=== PATIENT | female | born 1985 | race Caucasian/White ===

== ENCOUNTER → 2022-11-14 | Outpatient (CLI) | payer OTHER ==
[~2022-11-14] MED LIST: IBU600 MG PO
--- NOTE | 2022-11-14 15:46 | NUR ---
Pt, Jasmina Trinh, presents to walk in clinic with 7 week old baby girl, Denise Callejas, for a weight check. She states Denise was fed not long ago so did not think she would breastfeed at this time. Denise was born on [birth year] and weighed 6# 15oz. Last week Denise weighed 8# 15.2oz (4060 gms). Today Denise weighs 9# 12.5oz. Pt states Denise now drinks upto 150ml per bottle feeding, and about 60 after . Pt anticipates coming to clinic again to do a pre and post weight feed.
== END ==
LOC: LAC 14:18
DX: Z39.1 Encounter for care and examination of lactating mother (principal)

== ENCOUNTER → 2022-11-21 | Outpatient (CLI) | payer OTHER ==
--- NOTE | 2022-11-21 13:38 | NUR ---
Pt Jasmina Trinh, presents to walk-in clinic for and milk supply evaluation, with 8 week old baby girl, Denise Callejas. Denise was born on [birth year] and weighed 6#15oz (3147 gms). Pt has been feeding by breast and bottle. She is pumping 2-4 times per day, some after feedings, some in place of feedings and she collects 40-110ml depending on if she has breastfed or not. Denise drinks 120-150ml from bottle if not breastfed first, if she breastfeedings she gets 90-120ml after. Today Denise weighed 10# 4.6oz (4666 gms). After today Denise has a weight gain of 1oz (29ml). POC: Continue combination of breast, bottle, pumping. F/U: Anticipate at clinic in one week, as scheduled with doctors. Questions invited and answered.
== END ==
LOC: LAC 13:24
DX: Z39.1 Encounter for care and examination of lactating mother (principal)

== ENCOUNTER → 2022-12-21 | Outpatient (CLI) | payer OTHER ==
--- NOTE | 2022-12-21 15:12 | NUR ---
Pt, Jasmina Trinh, presents to walk-in clinic with 3 month old baby girl, Pedro Callejas, for a weight check. Pedro was born on [birth year] and weighed6#15oz (3147 gms). Today Pedro weighs 12# 8.4oz (5685 gms). Pt states she has stopped pumping and over the last week due to work schedule. Pt indicates she may return for weight checks prn. Questions invited and answered.
== END ==
LOC: LAC 14:46
DX: Z39.1 Encounter for care and examination of lactating mother (principal)